=== PATIENT | female | born 1955 | race Caucasian/White ===

== ENCOUNTER 2024-08-17 14:01 | Emergency (ER) | payer MEDICARE, SELFPAY ==
[2024-08-17] VITALS (8 sets, daily range): BP systolic 97–160; BP diastolic 67–96; BMI 28.8
[2024-08-17 14:38] LABS: % Basophils 0.4 % (0-2); % Eosinophils 1.3 % (0-6); % Immature Granulocytes 0.6 % (0-0.5); % Lymphocytes 24.1 % (20.5-51.1); % Neutrophils 64.6 % (42.2-75.2); Absolute Eosinophils 0.1 10^3/uL (0-0.7); Absolute Immature Granulocytes 0.1 10^3/uL (0-0.05); Absolute Lymphocytes 1.9 10^3/uL (1.2-3.4); Absolute Monocytes 0.7 10^3/uL (0.1-0.6); Hematocrit 43.9 % (37.0-47.0); Hemoglobin 13.5 g/dL (12.0-16.0); Mean Corp Hgb Conc. 30.8 g/dL (33.0-37.0); Mean Corpuscular Hgb 28.2 pg (27.0-31.0); Mean Corpuscular Volume 91.8 fL (81.0-99.0); Mean Platelet Volume 9.7 fL (7.4-10.4); Nucleated Red Blood Cells % 0 %; Platelet Count 329 10^3/uL (130-400); Red Blood Cell Count 4.78 10^6/uL (4.20-5.40); Red Cell Dist. Width 17.6 % (11.5-14.5); White Blood Cell Count 7.8 10^3/uL (4.8-10.8)
[2024-08-17 14:45] LABS: ALT (SGPT) 36 U/L (0-35); AST (SGOT) 32 U/L (14-36); Albumin 3.8 g/dl (3.5-5.0); Alkaline Phosphatase 122 U/L (38-126); Blood Urea Nitrogen 13 mg/dl (7-17); Calcium 9.2 mg/dl (8.4-10.2); Carbon Dioxide 28 mmol/L (22-30); Chloride 104 mmol/L (98-107); Glucose 93 mg/dl (70-99); Potassium 4.6 mmol/L (3.5-5.1); Sodium 138 mmol/L (135-145); Total Bilirubin 0.4 mg/dl (0.2-1.3); Total Protein 6.4 g/dl (6.3-8.2); eGFR > 60.00
[2024-08-17 15:21] LABS: TSH Reflex To Free T4 0.31 uIU/ml (0.47-4.68)
--- NOTE | 2024-08-17 15:29 | ED.GENMED ---
History of Present Illness
General
Chief Complaint: Heart Rate Problem
Source: patient
Exam Limitations: none
Time Seen by Provider: 08/17/24 15:15
Nursing documentation reviewed up to this point in time: agreed with
History of Present Illness
History of Present Illness:
Patient with history of paroxysmal atrial fibrillation on Xarelto and Tikosyn, presents to ED secondary to recurrent chest palpitations, associated with shortness of breath and fatigue, noted 5 days ago. Patient has taken multiple extra tablets of
metoprolol, in hopes of converting, which has happened in the past. Unfortunately, patient's symptoms have persisted. Denies dizziness. Denies nausea or vomiting. Denies chest pain. Denies fever or chills. Denies recent illness. Denies recent
change in medications or diet. Denies recent weight gain or weight loss.
Past History
Past History
ED Past Medical History: Arrthythmia (Atrial fibrillation) and Other (Atrial fibrillation, GI bleeding, anemia, greenfiled filter, Gastric bypass)
ED Past Surgical History: Cardiac (Cardiac ablation, Stent) and Other (Gastric bypass, Mallory filter)
Social History
Tobacco: Non-smoker
Alcohol: None
Drug: None
Personal:
Living: with family
Employment: Employed
Family History
Family History: Diabetes and Other
Review of Systems
Review of Systems
Allergies reviewed?: Yes
All Other Systems: ROS reviewed and negative except as documented in HPI and ROS
Constitutional: Reports fatigue
EENT: Reports no symptoms
Respiratory: Reports trouble breathing; Denies cough
Cardiac: Reports palpitations; Denies chest pain or syncope
ABD/GI: Reports no symptoms; Denies nausea or vomiting
Musculoskeletal: Reports no symptoms
Skin: Reports no symptoms
Neurological: Reports no symptoms; Denies dizzy
Phy Exam
Physical Exam
Physical Exam:
Physical Exam
General: no apparent distress, not acutely ill. afebrile
Head: nc/at. eomi
Neck: supple. no meningeal signs.
Heart: irregular irregular, tachycardic, no murmur. equal radial pulses.
Lungs: no acute respiratory distress. clear bilaterally
Abdomen: normal bowel sounds. not tender.
Neuro: alert and oriented. no focal neurological deficits
Skin: no rash
Psychiatric: well kept. interactive and cooperative
Extremities: no edema. no calf tenderness.
Course
Orders/Labs/Results
Orders:
Orders
08/17/24 14:01
ECG [Electrocardiogram (*1)] Urgent
Reason for Study: Atrial Fibrillation
EKG- Treatment ONCE
08/17/24 14:17
Complete Blood Count/With Diff Urgent
Comprehensive Metabolic Panel Urgent
Free T4 Urgent
Magnesium Urgent
Comment: ADD ON
TSH Reflex To Free T4 Urgent
08/17/24 15:15
Add On- LAB Urgent
Tests Added?: magnesium
08/17/24 15:32
Propofol [Diprivan] 20 ml .ROUTE .STK-MED
08/17/24 16:39
EKG [Electrocardiogram (*1)] Urgent
Reason for Study: Other
Other Reason for Exam: post cardioversion
EKG- Treatment ONCE
Abnormal Lab Results
08/17/24
14:17
MCHC 30.8 L g/dL
(33.0-37.0)
RDW 17.6 H %
(11.5-14.5)
Abs Immat Gran (auto) 0.1 H 10^3/uL
(0-0.05)
Absolute Monos (auto) 0.7 H 10^3/uL
(0.1-0.6)
Immature Gran % 0.6 H %
(0-0.5)
ALT 36 H U/L
(0-35)
TSH (Reflex) 0.31 L uIU/ml
(0.47-4.68)
08/17/24 14:17
08/17/24 14:17
Vital Signs
Initial and Last Documented VS:
Initial Vital Signs
Temp Pulse Resp BP Pulse Ox
98.5 F 144 18 160/96 99
08/17/24 14:06 08/17/24 14:06 08/17/24 14:06 08/17/24 14:06 08/17/24 14:06
Last Documented Vital Signs
Temp Pulse Resp BP Pulse Ox
98.9 F 88 18 108/77 99
08/17/24 17:20 08/17/24 17:20 08/17/24 17:20 08/17/24 17:20 08/17/24 17:20
Procedures
Moderate Sedation
ASA Risk Score: Class I
Chart and allergies reviewed: Yes
Consent for anesthesia obtained: Yes
Time out completed (validating right patient & procedure): Yes
Moderate Sedation Start Time(when first medication is given): 16:35
History of difficult intubation: No
Airway free of obstruction: Yes
Patient has a gag reflex: Yes
Patient is able to open mouth: Yes
Patient has no dentures: Yes
Patient has no loose teeth: Yes
Medication administered by Provider during Moderate Sedation: IV Propofol (mg)
Total dose administered: 50
Time drug administered: 16:35
Moderate Sedation Procedure End Time: 16:50
Cardioversion
Indication:: Afib
Synchronized?: Yes
Energy Used: 200 joules
Number of attempts: 1
Successful?: Yes
Complications: None
ASA Risk Score: Class I
Any reaction or bad outcome to prior sedation/anesthesia?: No history of a reaction
Sedation level to be attained: moderate
Chart and allergies reviewed: Yes
Patient reassessed prior to sedation: Yes
Time out completed at (validating right patient & procedure): 16:33
History of difficult intubation: No
Airway free of obstruction: Yes
Patient has a gag reflex: Yes
Patient is able to open mouth: Yes
Patient has no dentures: Yes
Patient has no loose teeth: Yes
Medication administered by Provider during Moderate Sedation: IV Propofol (mg)
Total dose administered: 50
Time drug administered: 16:35
Start Time: 16:35
Stop Time: 16:50
MDM/Problems Addressed
MDM/Problems Addressed:
History, exam, and EKG consistent with recurrent rapid atrial fibrillation. In light of patient's multiple attempts at home with extra tablets of metoprolol without success, after discussion, decision made to perform cardioversion.
Procedure consent on the chart.
Xarelto taken this morning
Pt with successful cardioversion, confirmed via repeat EKG. patient also states that her presenting symptoms, i.e. shortness of breath/fatigue, have resolved completely.
Patient will follow-up with her [employer] for reevaluation, as an outpatient.
Critical care statement: A total of40 minutes of critical care time was provided for this patient. This includes management of unstable vital signs, evaluation of the patient at bedside, reviewing the patient's pertinent medical records, review of
old EKGs and review of pertinent medical records. This time with separate from time utilized to perform the aforementioned documented procedures
*EKG
Interpreted by ED Provider?: Yes
EKG Intrepretation Date: 08/17/24
Heart Rate: 123
Rate: tachycardiac
Rhythm: a-fib
Bertram: normal axis
Interval: normal interval
*Critical Care Note
Total Time (30-74mins, 75-104mins- exclusive of procedures): 40 min
ED Attending Note
-
Portions of this chart may have been created with voice recognition software.� Occasional wrong word or��sound alike� substitutions may have occurred due to the inherent limitations of voice recognition software.
Discharge Plan
Departure
Patient Disposition: Home (Routine Discharge)
Date of Disposition: 08/17/24
Time of Disposition: 17:19
Patient with high blood pressure during this ER visit?: Yes
Condition: Good
Discharge Problem:
Atrial fibrillation, rapid
Instructions: Atrial Fibrillation (DC), Moderate Sedation in Adults (DC)
Prescriptions:
No Action
Caltrate 600 plus D 1 EACH tablet,chewable
1 ea PO DAILY
metoprolol succinate 100 MG tablet extended release 24 hr
100 mg PO DAILY Qty: 30 3RF
Xarelto 20 MG tablet
20 mg PO DAILY
cyanocobalamin (vitamin B-12) 1,000 MCG tablet
1,000 mcg PO DAILY
ferrous sulfate [FeroSul] 325 MG tablet
325 mg PO DAILY
acetaminophen 325 MG tablet
650 mg PO Q4HPRN PRN (Reason: mild pain)
Theragen Tablet
1 tab PO DAILY
folic acid 1 mg Tablet
1 mg PO DAILY
dofetilide 500 MCG capsule
500 mcg PO BID
Referrals:
Jose Miguel Adair MD [Active] -
NONE,* [Family Provider] -
Stand Alone Forms: Return to Work
Activity Restrictions/Additional Instructions:
As discussed, please follow-up with your [employer] for reevaluation.
Interventions
Interventions:
*Risk Screen - Suicide Last Done: 08/17/24 14:06
*General Assessment Last Done: 08/17/24 14:06
*Neglect/Abuse Screening Last Done: 08/17/24 14:06
ED- Fall Risk Assessment Last Done: 08/17/24 18:07
*ED COVID-19 Vaccine History Last Done: 08/17/24 14:06
*Nursing Disposition Last Done: 08/17/24 18:07
ED- Cardiac Assessment Last Done: 08/17/24 18:07
ED- Pulmonary Assessment Last Done: 08/17/24 18:07
Discharge Date and Time
Discharge Date/Time: 08/17/24 18:09
Print Language: [place]
[2024-08-17 16:12] LABS: Free T4 0.97 ng/dl (0.78-2.19)
[2024-08-17 16:29] LABS: Magnesium 2.3 mg/dl (1.6-2.3)
--- NOTE | 2024-08-17 16:55 | EDRN ---
Patient cardioverted by Dr. Sánchez.
Time out completed at 1632
30mg of propofol given by Dr. Sánchez at 1635
20mg of propofol given by Dr. Sánchez at 1637
200J done by Dr. Sánchez at 1638
End time 1650
Patient tolerated procedure well.
== END 2024-08-17 18:09 | disposition home or self-care (01) ==
LOC: EMR 14:01
PROVIDERS: Student in an Organized Health Care Education/Training Program; EMERGENCY PHYSICIAN Emergency Medicine
DX: I48.91 Unspecified atrial fibrillation (principal); R53.83 Other fatigue; R07.89 Other chest pain; I49.1 Atrial premature depolarization; Z79.01 Long term (current) use of anticoagulants; Z83.3 Family history of diabetes mellitus; Z95.5 Presence of coronary angioplasty implant and graft; Z98.84 Bariatric surgery status
CPT/HCPCS: 99284; 92960; 80053; 83735; 84439; 84443; 85025; 93005; 99291

== ENCOUNTER → 2025-04-12 08:13 | Outpatient (REF) | payer MEDICARE, SELFPAY | LOC: HWRAD 08:13 | PROVIDERS: ATTENDING PHYSICIAN Family Medicine | DX: M85.9 Disorder of bone density and structure, unspecified (principal); M85.89 Other specified disorders of bone density and structure, multiple sites | CPT/HCPCS: 77080 ==

== ENCOUNTER → 2025-06-28 08:04 | Outpatient (REF) | payer MEDICARE, SELFPAY | LOC: HWRCS 08:04 | PROVIDERS: ATTENDING PHYSICIAN Physician Assistant Medical | DX: I48.0 Paroxysmal atrial fibrillation (principal); I34.0 Nonrheumatic mitral (valve) insufficiency | CPT/HCPCS: 93306 ==